=== PATIENT | female | born 1990 | race Two or more races ===

== ENCOUNTER 2018-09-12 23:42 | Inpatient (IN) | payer OTHER ==
[~2018-09-12] VITALS: Ht 154.9 cm; Wt 2.7 kg
[2018-09-12] MEDS ORDERED: PRENATABS RX T1 EACH PO (23:57)
== END 2018-09-16 15:32 | DRG 783 ==
LOC: LDR 23:42 → OB/GYN 09-13 16:24
PROVIDERS: ADMIT Obstetrics & Gynecology
PROC: 0UL70ZZ Occlusion of Bilateral Fallopian Tubes, Open Approach (ICD-10-PCS; 2018-09-13)
PROC: 4A1HX4Z Monitoring of Products of Conception, Cardiac Electrical Activity, External Approach (ICD-10-PCS; 2018-09-13)
PROC: 10D00Z1 Extraction of Products of Conception, Low, Open Approach (ICD-10-PCS; principal; 2018-09-13 15:00)
DX: O82 Encounter for cesarean delivery without indication (principal); O60.14X0 Preterm labor third trimester with preterm delivery third trimester, not applicable or unspecified; Z3A.36 36 weeks gestation of pregnancy; Z37.0 Single live birth; Z30.2 Encounter for sterilization; Z22.330 Carrier of Group B streptococcus